=== PATIENT | male | born 1980 | race Caucasian/White ===

== ENCOUNTER 2016-11-13 08:35 | Emergency (ER) | payer OTHER ==
[~2016-11-13] VITALS: Ht 172.7 cm; Wt 68.2 kg
[~2016-11-13 08:35] MED LIST: HYDR-4150 PO; KLO1T PO; NEOM10DR11 OT; SAFF176. PO
[2016-11-13 08:44] VITALS: BP 131/79; PULSE 93; RESP 12; O2SAT 100
--- NOTE | 2016-11-13 09:29 | ED.REPORT ---
HPI-Extremity Problem Upper Date of Service Nov 13, 2016 ED Provider: Pepito Swift MD Pt is a 36 y/o male presenting to the ED c/o left hand injury which occurred prior to arrival. He crushed his hand between the trunk of tree and handle of axe while working outside today. He denies numbness or weakness of the hand or fingers or any other injury. Nursing Notes Stated Complaint: LEFT HAND/WRIST INJURY Chief Complaint: Extremity Trauma Nursing Notes Reviewed: Yes Allergies: Coded Allergies: amitriptyline (Verified Allergy, Unknown, 09/04/15) ketorolac tromethamine (Verified Allergy, Unknown, 09/04/15) ibuprofen (Verified Adverse Reaction, Intermediate, Nausea, 09/04/15) tramadol HCl (Verified Adverse Reaction, Unknown, stomach ache/ nausea, 08/08) Scheduled Neomy Sulf/Colist Sul/Hc/Thonz (Cortisporin-Tc Ear Susp) 10 Ml Drops.susp 5 GTTS OT QID Saffron Extract (Saffron) 176.5 Mg Tablet 0 PO HS Scheduled PRN Clonazepam (Clonazepam) 1 Mg Tab 1 MG PO AM AND AFTERNOON PRN PRN For Anxiety Clonazepam (Clonazepam) 1 Mg Tab 0.5 MG PO HS PRN PRN For Anxiety Hydrocodone/Acetaminophen ([place] 5-325 Tablet) 1 Each Tablet 1 EACH PO Q6H PRN PRN For Pain General Time Seen by MD: 09:19 Chief Complaint Hand Injury left Hx Obtained From: Patient Arrived By: Walk-in Onset Occurred: Just prior to arrival Symptom Duration: Since onset Location: : Hand left Quality: Painful Severity: Current: Mild Severity: Maximum: Moderate Similar Sx Previous: No Past Medical History Past Medical History Notes: A multitude of ED visits for CP attributed to Anxiety (negative cardiac w/u) negative cardiac cath following false positive nuclear stress August 2014 Past Medical History Anxiety Pancreatitis HTN Reports: Hypertension, Mental illness Past Surgical History Heart Cath: 08/29/2013 IMPRESSION: 1. Normal coronaries angiographically. 2. Normal aortic and LV pressures. Family History Father had an [place] at age 35 per pt Smoking History Current Some Day Smoker Social History Alcohol Use: Denies alcohol use Drug Use: Denies drug use, THC Other Social History: Frequent ED visitor, Local resident Ambulatory Status Independent Review of Systems Musculoskeletal: Reports: Extremity pain, Extremity swelling Neurologic: Denies: Numbness, Weakness Complete sys rev & neg: except as marked. Physical Exam Initial Vital Signs Vital Signs (First) Date Time Temp Pulse Resp B/P Pulse Ox O2 Delivery O2 Flow Rate FiO2 11/13/16 08:44 36.1 93 12 131/79 100 Room Air Initial VS: Reviewed, Vital signs normal Head / Eyes: Atraumatic, Normocephalic, PERRL ENT: Mucous membranes moist, Conjunctiva normal, No scleral icterus Neck: Supple, Full range of motion Respiratory: Breath sounds normal, Clear to auscultation, No respiratory distress Cardiovascular: Regular rate & rhythm, Heart sounds normal, Intact distal pulses Abdomen / GI: Soft, Non-tender Skin: Warm, Dry, No cyanosis Neurologic: Alert, Oriented, Nonfocal Psychiatric: Mood/affect normal, Behavior normal, Normal thought content General/Constitutional: Awake, Alert, No acute distress, Well appearing, Cooperative, Not toxic appearing Upper Extremity / MS: No erythema, No deformity, Neurologic intact, Vascular intact Wrist / Hand: No erythema, No snuffbox tenderness, No deformity, Neurologic intact, Vascular intact, No ligamentous injury, Tendon function NL, No compartment syndrome, No circumferential injury, No clubbing/cyanosis, No edema Swelling of the lateral and ulnar aspect of the hand No focal bony tenderness Interpretation & Diagnostics X-Ray Interpretation Study Performed: 3 view X-Ray Ordered: Hand left Interpretation / Wet Read by: Wet read ED physician Interpretation: Normal exam, No fracture/dislocation Re-Eval/Medical Decision Med Decision/Clinical Course Pt is a 36 y/o male presenting to the ED c/o left hand injury which occurred prior to arrival. He crushed his hand between the trunk of tree and handle of axe while working outside today. He denies numbness or weakness of the hand or fingers or any other injury. Upon arrival the patient is afebrile stable vital signs in no apparent distress. No evidence of neurovascular injury. Good cap refill to the fingertips and good sensation. No scaphoid tenderness. Offered Tylenol and an ice pack for pain however he refused. No objective signs of trauma on examination such as bruising or abrasion. Plain films of the left wrist/hand and my assessment demonstrated no acute fracture. Per interpretation of radiology there was "partially visualized, nondisplaced lucency at the base of the fifth metacarpal, suggestive of fracture". I reviewed these films and I am not 100% convinced of fracture given the patient' s presentation. That being said, he was called back to the emergency department and a finger splint was placed. He was advised to follow up closely with his primary care physician. Follow-up and precautions were reviewed in detail and he was discharged in good condition. Re-Evaluation/Progress : Time of Eval: 09:53 Re-Evaluation/Progress Note: Pt rechecked. Informed pt of plan for treatment. Pt understands and agrees with plan for treatment. F/U and RTER warnings given. All questions addressed. Counseled Regarding: Diagnosis, Need for follow-up, When/why to return to ED Discharge & Departure Impression: Primary Impression: Injury of left hand Encounter type: initial encounter Qualified Code: S69.92XA - Unspecified injury of left wrist, hand and finger(s), initial encounter Additional Impression: Finger fracture, left Disposition: Home Discharge Condition All VS Reviewed: Yes Condition: Stable Additional Instructions: Thank you for seeking care at the emergency room. There is no fracture visible on x-ray. Take Tylenol as directed for pain You should follow-up with your primary doctor in the next week. You should return to the ED immediately if you develop increasing pain or increasing numbness or weakness of your hands or fingers or any other concerning signs or symptoms. Thank you for letting us partake in your care today. Referrals: CHYNA IBRAHIM MD (PCP) Gemaibe Attestation Portions of this note were transcribed by Phuc Hwoard. I, Dr. Swift personally performed the history, physical exam and medical decision-making; I reviewed and confirmed the accuracy of the information in the transcribed note. Signed by Gabriel Fisher, 11/13/16 - 1000 copies to: CHYNA IBRAHIM MD, Beck O MD Nov 13, 2016 09:28 PHUC HOWARD Nov 13, 2016 09:56
[2016-11-13 10:08] VITALS: BP 132/93; PULSE 94; RESP 20; O2SAT 99
--- NOTE | 2016-11-13 10:08 | DRSVH ---
PROCEDURE: X-RAY LEFT HAND, MINIMUM THREE VIEWS ([id number]) INDICATIONS: left hand and wrist pain TECHNIQUE: 3 views of the hand(s) acquired. COMPARISON: None. FINDINGS: Bones: Partially visualized, nondisplaced lucency at the base of the fifth metacarpal. Carpal bones are normally aligned. No suspicious bony lesions. Soft tissues: No suspicious soft tissue calcifications. IMPRESSION: Partially visualized, nondisplaced lucency at the base of the fifth metacarpal, suggesti ve of fracture. Dictated by: Antonina Garcia M.D. on 11/13/2016 at 9:03 Approved by: Antonina Garcia M.D. on 11/13/2016 at 9:07
== END 2016-11-13 10:09 | disposition home or self-care (01) ==
LOC: SED 08:35
DX: S62.607A Fracture of unspecified phalanx of left little finger, initial encounter for closed fracture (principal); W23.0XXA Caught, crushed, jammed, or pinched between moving objects, initial encounter; Y93.89 Activity, other specified; Y99.8 Other external cause status; Y92.89 Other specified places as the place of occurrence of the external cause; F41.9 Anxiety disorder, unspecified; I10 Essential (primary) hypertension; F17.210 Nicotine dependence, cigarettes, uncomplicated; F12.10 Cannabis abuse, uncomplicated; Z87.19 Personal history of other diseases of the digestive system; Z95.5 Presence of coronary angioplasty implant and graft; Z88.6 Allergy status to analgesic agent; Z88.5 Allergy status to narcotic agent; Z88.8 Allergy status to other drugs, medicaments and biological substances

== ENCOUNTER 2016-11-17 14:43 | Emergency (ER) | payer OTHER ==
[~2016-11-17] VITALS: Ht 172.7 cm; Wt 68.2 kg
[2016-11-17 14:51] VITALS: BP 122/74; PULSE 69; RESP 15; O2SAT 99
--- NOTE | 2016-11-17 15:24 | ED.REPORT ---
HPI-Trauma Minor / Fall Date of Service Nov 17, 2016 ED Provider: Maciej Jonhston DO Ed Morgan is a 36 year old man with a PMH of Anxiety, non-cardiac chest pain , and a recent injury where he crushed his hand against a tree. He was seen on here in the ED and was diagnosed with a non fracture wrist injury and provided with a splint. He continued to have pain and sought further evaluation which revealed a small fracture at the base of the 5th metacarpal. He is returning to the ED because "I cannot live with this pain" and is adamantly expressing a desire to have a cast put on the hand and wrist. He had an appointment with orthopedics today which the provider had to cancel because of an emergent patient. He has spoken with Elodia from risk management, and was told that an orthopedic nurse would call him later today to schedule an appointment. He is unwilling to wait any longer to be seen. Nursing Notes Stated Complaint: POSS FRACTURED WRIST Chief Complaint: Extremity Trauma Allergies: Coded Allergies: amitriptyline (Verified Allergy, Unknown, 09/04/15) ketorolac tromethamine (Verified Allergy, Unknown, 09/04/15) ibuprofen (Verified Adverse Reaction, Intermediate, Nausea, 09/04/15) tramadol HCl (Verified Adverse Reaction, Unknown, stomach ache/ nausea, 08/08) Scheduled Neomy Sulf/Colist Sul/Hc/Thonz (Cortisporin-Tc Ear Susp) 10 Ml Drops.susp 5 GTTS OT QID Saffron Extract (Saffron) 176.5 Mg Tablet 0 PO HS Scheduled PRN Clonazepam (Clonazepam) 1 Mg Tab 1 MG PO AM AND AFTERNOON PRN PRN For Anxiety Clonazepam (Clonazepam) 1 Mg Tab 0.5 MG PO HS PRN PRN For Anxiety Hydrocodone/Acetaminophen ([place] 5-325 Tablet) 1 Each Tablet 1 EACH PO Q6H PRN PRN For Pain General Time Seen by MD: 15:15 Chief Complaint Extremity pain Past Medical History Past Medical History Notes: A multitude of ED visits for CP attributed to Anxiety (negative cardiac w/u) negative cardiac cath following false positive nuclear stress August 2014 Past Medical History Anxiety Pancreatitis HTN Reports: Hypertension, Mental illness Past Surgical History Heart Cath: 08/29/2013 IMPRESSION: 1. Normal coronaries angiographically. 2. Normal aortic and LV pressures. Family History Father had an [place] at age 35 per pt Smoking History Current Some Day Smoker Social History Alcohol Use: Denies alcohol use Drug Use: Denies drug use, THC Other Social History: Frequent ED visitor, Local resident Ambulatory Status Independent Review of Systems Musculoskeletal: Reports: Joint pain Complete sys rev & neg: except as marked. Physical Exam Gen: A/O x3 agitated disheveled man in moderate acute distress secondary to anxiety and wrist pain Neck: Supple, Full ROM HEENT: Mucous membranes slightly dry, PERRL, EOMI Chest: Patient refused cardio-pulmonary exam Extr: Left hand in lavern wrapped finger splint, neurovascularly intact with normal movement of non-splinted fingers. No cyanosis or clubbing Neuro: CN 2-12 grossly intact, no focal neurologic deficit. Psych: Patient alternately tearful and agitated, quite adamant and demanding of care beyond the scope of this ED Initial Vital Signs Vital Signs (First) Date Time Temp Pulse Resp B/P Pulse Ox O2 Delivery O2 Flow Rate FiO2 11/17/16 14:51 36.8 69 15 122/74 99 Room Air Initial VS: Reviewed, Vital signs normal Re-Eval/Medical Decision Med Decision/Clinical Course Attending note: I saw this patient. I agree with the documentation of the resident. Patient is 4 days post injury to the hand, is in an ulnar gutter splint. Evidently arrived in the ER demanding a cast today to be placed after having his orthopedics appointment canceled. When informed that mass cannot be placed in the ER, he demanded to speak with risk management. Unfortunately, this patient became impatient and left prior to being seen by risk management or having any other treatment. The patient is here in the ED demanding to be seen for casting of his L wrist, when we informed him that we do not do casting in the ED he became quite agitated and demanded to speak with Elodia Russell from risk management who he had spoken to earlier in order to expedite an orthopedic appointment to be casted. We spoke with Elodia and she informed us that she or someone from her office would be down to speak with him. We were able to set up an appointment for 2pm tomorrow to be evaluated by [facility]. The patient refused to sign any admission paperwork, and eloped prior to receiving his discharge paperwork. Counseled Regarding: Diagnosis, Need for follow-up, When/why to return to ED Discharge & Departure Impression: Primary Impression: Injury of left hand Disposition: Home (Patient eloped) Discharge Condition All VS Reviewed: Yes Condition: Stable Patient Instructions: Splint Care (ED) Additional Instructions: We have set you up with an appointment for 2pm tomorrow at [facility] for further evaluation. Please follow up with them. Referrals: CHYNA IBRAHIM MD (PCP) Johnathon Giang DO Nov 17, 2016 15:12 Maciej Johnston DO Nov 17, 2016 16:53
== END 2016-11-17 15:36 | disposition home or self-care (01) ==
LOC: SED 14:43
DX: S62.307A Unspecified fracture of fifth metacarpal bone, left hand, initial encounter for closed fracture (principal); W23.1XXA Caught, crushed, jammed, or pinched between stationary objects, initial encounter; Y92.007 Garden or yard of unspecified non-institutional (private) residence as the place of occurrence of the external cause; Y93.H2 Activity, gardening and landscaping; Y99.8 Other external cause status; I10 Essential (primary) hypertension; F41.9 Anxiety disorder, unspecified; F17.200 Nicotine dependence, unspecified, uncomplicated; Z87.898 Personal history of other specified conditions; Z88.8 Allergy status to other drugs, medicaments and biological substances; Z88.6 Allergy status to analgesic agent; Z88.5 Allergy status to narcotic agent

== ENCOUNTER 2017-02-07 17:14 | Emergency (ER) | payer OTHER ==
[~2017-02-07] VITALS: Ht 175.3 cm; Wt 54.0 kg
[2017-02-07 17:20] VITALS: BP 127/79; PULSE 82; RESP 16; O2SAT 99
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
[2017-02-07] MEDS ORDERED: POLY17PO6 PO (18:40)
== END 2017-02-07 19:11 | disposition home or self-care (01) ==
LOC: SED 17:14
DX: K59.00 Constipation, unspecified (principal); F41.9 Anxiety disorder, unspecified; I10 Essential (primary) hypertension; F17.210 Nicotine dependence, cigarettes, uncomplicated; F12.10 Cannabis abuse, uncomplicated; G89.29 Other chronic pain; Z87.19 Personal history of other diseases of the digestive system; Z98.890 Other specified postprocedural states; Z88.5 Allergy status to narcotic agent; Z88.6 Allergy status to analgesic agent; Z88.8 Allergy status to other drugs, medicaments and biological substances

== ENCOUNTER 2017-03-14 09:04 | Emergency (ER) | payer MEDICAID, OTHER ==
[~2017-03-14] VITALS: Ht 172.7 cm; Wt 63.6 kg
[~2017-03-14 09:04] MED LIST changes: +POLY17PO6 PO
[2017-03-14 09:09] VITALS: BP 118/78; PULSE 88; RESP 16; O2SAT 98
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
[2017-03-14 10:40] LABS: BASOPHILS % (AUTO) 0.2 % (0-3); EOSINOPHILS % (AUTO) 0.5 % (0-5); MONOCYTES % (AUTO) 8.6 % (4-12); Mean Corpuscular Hemoglobin 32.2 pg (27.0-35.0); Mean Corpuscular Volume 91.8 fL (81-100); NEUTROPHILS % (AUTO) 58.1 % (40-74); Platelet Count 202 bil/L (150-400)
--- NOTE | 2017-03-14 13:10 | DRSVH ---
PROCEDURE: CT ABDOMEN AND PELVIS WITH CONTRAST ([id number]) INDICATIONS: 36 year-old man with diffuse abdominal pain. TECHNIQUE: After the administration of intravenous contrast, 5 mm thick sections acquired from the diaphragm to the symphysis. 5 mm coronal and sagittal reformats were acquired. For radiation dose reduction, the following was used: automated exposure control, adjustment of mA and/or kV according to patient siz e. COMPARISON: [facility], CT, ABD/PELVIS W/CON (PNL), 07/08/2013, 12:29[facility]LV[facility]/CON (PNL), 07/30/2013, 18:36. [facility], CT, CT ABD PELVIS W C ON, 06/12/2015, 15:09. FINDINGS: Image quality: Excellent. ABDOMEN: Lung bases: Lung bases are clear. Heart size is normal. Solid organs: Liver and spleen are normal in size and enhancement. Gallbladder is normal. Biliary system is non dilated. Pancreas enhances normally. No adrenal nodules. Kidneys demonstrate normal size and enhancement, without hydronephrosis. Peritoneum and bowel: Bowel loops demonstrate normal wall thickness and caliber. The appendix is no rmal. No free fluid or air. Nodes and vessels: No retroperitoneal or mesenteric adenopathy by size criteria. Aorta and inferior vena cava are normal in size. Miscellaneous: No ventral hernias. PELVIS: Genitourinary: Bladder wall thickness is normal. Miscellaneous: No inguinal hernias or adenopathy. Bones: No suspicious bony lesions. No vertebral body compression fractures. IMPRESSION: No CT findings to explain diffuse abdominal pain. Dictated by: Yoel Gonsales M.D. on 03/14/2017 at 13:05 Approved by: Yoel Gonsales M.D. on 03/14/2017 at 13:08
== END 2017-03-14 16:19 | disposition home or self-care (01) ==
LOC: SED 09:04
DX: R10.84 Generalized abdominal pain (principal); F11.10 Opioid abuse, uncomplicated; F41.9 Anxiety disorder, unspecified; R45.1 Restlessness and agitation; I10 Essential (primary) hypertension; F17.200 Nicotine dependence, unspecified, uncomplicated; Z88.8 Allergy status to other drugs, medicaments and biological substances; Z88.6 Allergy status to analgesic agent
CPT/HCPCS: 36415; 74177; 80053; 81002; 83690; 85025; 99284; Q9967